=== PATIENT | female | born 2000 | race Two or more races ===

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

== ENCOUNTER 2018-11-27 12:29 | Emergency (ER) | payer MEDICAID ==
--- NOTE | 2018-11-27 12:57 | EDM.PDOC ---
ED HPI GENERAL MEDICAL PROBLEM - General Chief Complaint: CAN LINE EXAMINER Problem Stated Complaint: ABNORMAL BLEEDING Time Seen by Provider: 11/27/18 12:44 - History of Present Illness INITIAL COMMENTS - FREE TEXT/NARRATIVE: HISTORY AND PHYSICAL: History of present illness: Patient's 18-year-old female presents with concern of vaginal bleeding her period started 1 week prior normally last 3-4 days if his lasted slightly longer than that patient was concerned about the etiology. She is in no dizziness shortness of breath she does have an IUD she denies abdominal pain other than mild menstrual cramps. Review of systems: As per history of present illness and below otherwise all systems reviewed and negative. Past medical history: As per history of present illness and as reviewed below otherwise noncontributory. Surgical history: As per history of present illness and as reviewed below otherwise noncontributory. Social history: No reported history of drug or alcohol abuse. Family history: As per history of present illness and as reviewed below otherwise noncontributory. Physical exam: HEENT: Atraumatic, normocephalic, pupils reactive, negative for conjunctival pallor or scleral icterus, mucous membranes moist, throat clear, neck supple, nontender, trachea midline. Lungs: Clear to auscultation, breath sounds equal bilaterally, chest nontender. Heart: S1S2, regular, negative for clicks, rubs, or JVD. Abdomen: Soft, nondistended, nontender. Negative for masses or hepatosplenomegaly. Negative for costovertebral tenderness. Pelvis: Stable nontender. Genitourinary: Deferred. Rectal: Deferred. Extremities: Atraumatic, negative for cords or calf pain. Neurovascular unremarkable. Neuro: Awake, alert, oriented. Cranial nerves II through XII unremarkable. Cerebellum unremarkable. Motor and sensory unremarkable throughout. Exam nonfocal. Diagnostics: CBC hCG Therapeutics: None Impression: #1 menorrhagia Definitive disposition and diagnosis as appropriate pending reevaluation and review of above. - Related Data Allergies Allergy/AdvReac Type Severity Reaction Status Date / Time amoxicillin Allergy Hives Verified 07/05/18 18:58 Home Meds: Home Meds . [No Known Home Meds] 06/20/15 [History] Past Medical History - Past Health History Medical/Surgical History: Denies Medical/Surgical History HEENT History: Reports: None Cardiovascular History: Reports: None Respiratory History: Reports: None Gastrointestinal History: Reports: None Genitourinary History: Reports: None CAN LINE EXAMINER History: Reports: Other CAN LINE EXAMINER History: bleeding for 2 months Neurological History: Reports: None Psychiatric History: Reports: None - Infectious Disease History Infectious Disease History: Reports: Chicken Pox - Past Surgical History HEENT Surgical History: Reports: None Cardiovascular Surgical History: Reports: None Respiratory Surgical History: Reports: None Social & Family History - Family History Family Medical History: Noncontributory - Caffeine Use Caffeine Use: Reports: Coffee, Energy Drinks ED ROS GENERAL - Review of Systems Review Of Systems: ROS reveals no pertinent complaints other than HPI. ED EXAM, GENERAL - Physical Exam Exam: See Below (See dictation) Course - Orders/Labs/Meds Orders: Active Orders 24 hr Category Date Time Status CBC WITH AUTO DIFF [HEME] Stat Lab 11/27/18 12:48 Ordered HCG QUALITATIVE,SERUM [CHEM] Stat Lab 11/27/18 12:48 Ordered Departure - Departure Time of Disposition: 12:57 Disposition: Home, Self-Care 01 Condition: Good Clinical Impression: Menorrhagia - Discharge Information Referrals: Deanna Zeng HELP DESK COORDINATOR [Primary Care Provider] - Additional Instructions: The following information is given to patients seen in the emergency department who are being discharged to home. This information is to outline your options for follow-up care. We provide all patients seen in our emergency department with a follow-up referral. The need for follow-up, as well as the timing and circumstances, are variable depending upon the specifics of your emergency department visit. If you don't have a primary care physician on staff, we will provide you with a referral. We always advise you to contact your personal physician following an emergency department visit to inform them of the circumstance of the visit and for follow-up with them and/or the need for any referrals to a consulting specialist. The emergency department will also refer you to a specialist when appropriate. This referral assures that you have the opportunity for followup care with a specialist. All of these measure are taken in an effort to provide you with optimal care, which includes your followup. Under all circumstances we always encourage you to contact your private physician who remains a resource for coordinating your care. When calling for followup care, please make the office aware that this follow-up is from your recent emergency room visit. If for any reason you are refused follow-up, please contact the [facility] emergency department at and asked to speak to the emergency department charge nurse. Follow-up CAN LINE EXAMINER as scheduled and return as needed as discussed - My Orders Last 24 Hours: My Active Orders 11/27/18 12:48 CBC WITH AUTO DIFF [HEME] Stat HCG QUALITATIVE,SERUM [CHEM] Stat - Assessment/Plan Last 24 Hours: My Active Orders 11/27/18 12:48 CBC WITH AUTO DIFF [HEME] Stat HCG QUALITATIVE,SERUM [CHEM] Stat
[2018-11-27 13:02] VITALS: BP 108/80
== END 2018-11-27 14:38 | disposition home or self-care (01) ==
LOC: MW.ED 12:29
DX: N92.0 Excessive and frequent menstruation with regular cycle (principal); Z88.1 Allergy status to other antibiotic agents
CPT/HCPCS: 36415; 84703; 85025; 99282; 99284

== ENCOUNTER 2019-09-29 20:46 | Emergency (ER) | payer MEDICAID, OTHER ==
--- NOTE | 2019-09-29 21:41 | EDM.PDOC ---
ED HPI GENERAL MEDICAL PROBLEM - General Chief Complaint: General Stated Complaint: FLU Time Seen by Provider: 09/29/19 21:40 Source of Information: Reports: Patient History Limitations: Reports: No Limitations - History of Present Illness INITIAL COMMENTS - FREE TEXT/NARRATIVE: HISTORY AND PHYSICAL: History of present illness: Patient is a 19-year-old female who presents to the emergency room today with complaints of a dry nonproductive cough, chills and generally feeling unwell. Patient is concerned she may have influenza. 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 Patient denies any fever , headache, change in vision, syncope or near syncope. Denies any chest pain, back pain, shortness of breath or cough. Denies any GI or symptoms. Patient has been eating and drinking appropriately. Review of systems: As per history of present illness and below otherwise all systems reviewed and negative. Past medical history: As per history of present illness and as reviewed below otherwise noncontributory. Surgical history: As per history of present illness and as reviewed below otherwise noncontributory. Social history: See social history for further information Family history: As per history of present illness and as reviewed below otherwise noncontributory. Physical exam: General: Well-developed and well-nourished 19-year-old female. Alert and oriented. Nontoxic-appearing and in no acute distress. HEENT: Atraumatic, normocephalic, pupils equal and reactive bilaterally, negative for conjunctival pallor or scleral icterus, mucous membranes moist, TMs normal bilaterally, throat clear, neck supple, nontender, trachea midline. No drooling or trismus noted. No meningeal signs. No hot potato voice noted. Lungs: Clear to auscultation, breath sounds equal bilaterally, chest nontender. Dry nonproductive cough noted. Heart: S1S2, regular rate and rhythm without overt murmur Abdomen: Soft, nondistended, nontender. Negative for masses or hepatosplenomegaly. Negative for costovertebral tenderness. Skin: Intact, warm, dry. No lesions or rashes noted. Extremities: Atraumatic, moves all extremities per self without difficulty or deficits, negative for cords or calf pain. Neurovascular unremarkable. Neuro: Awake, alert, oriented. Cranial nerves II through XII unremarkable. Cerebellum unremarkable. Motor and sensory unremarkable throughout. Exam nonfocal. Notes: Supportive care measures were reviewed and discussed. Voices understanding and is agreeable to plan of care. Denies any further questions or concerns at this time. Diagnostics: Influenza Therapeutics: Phenergan w/ cod Prescription: Zpak Impression: Bronchitis Plan: 1. Standard contact precautions (covering mouth while coughing, avoid sharing drinking cups and eating utensils). Please make sure you're doing good handwashing as this is contagious. 2. Take medications as prescribed 3. Supportive care measures such as Tylenol and/or ibuprofen for pain and fever management.Encourage small frequent sips of fluids to prevent dehydration. 4. 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 Return to the ED as needed and as discussed. Definitive disposition and diagnosis as appropriate pending reevaluation and review of above. headache Pain Score (Numeric/FACES): 6 - Related Data Allergies Allergy/AdvReac Type Severity Reaction Status Date / Time amoxicillin Allergy Hives Verified 09/29/19 21:38 Home Meds: Home Meds . 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: Reports: Other DENTAL TECHNOLOGY ADVISOR History: bleeding for 2 months Neurological History: Reports: None Psychiatric History: Reports: None - Infectious Disease History Infectious Disease History: Reports: Chicken Pox - Past Surgical History HEENT Surgical History: Reports: None Cardiovascular Surgical History: Reports: None Respiratory Surgical History: Reports: None Social & Family History - Family History Family Medical History: Noncontributory - Caffeine Use Caffeine Use: Reports: None ED ROS GENERAL - Review of Systems Review Of Systems: Comprehensive ROS is negative, except as noted in HPI. ED EXAM, GENERAL - Physical Exam Exam: See Below (See dictation) Course - Vital Signs Last Recorded V/S: Last Vital Signs Temp 98.4 F 09/29/19 21:35 Pulse 106 H 09/29/19 21:35 Resp 18 09/29/19 21:35 BP 123/78 09/29/19 21:35 Pulse Ox 98 09/29/19 21:35 Departure - Departure Time of Disposition: 22:13 Disposition: Home, Self-Care 01 Clinical Impression: Bronchitis - Discharge Information Instructions: Upper Respiratory Infection, Adult, [id number] Referrals: Deanna Zeng SALESPERSON TERRAZZO TILES [Primary Care Provider] - Forms: ED Department Discharge Additional Instructions: The following information is given to patients seen in the emergency department who are being discharged to home. This information is to outline your options for follow-up care. We provide all patients seen in our emergency department with a follow-up referral. The need for follow-up, as well as the timing and circumstances, are variable depending upon the specifics of your emergency department visit. If you don't have a primary care physician on staff, we will provide you with a referral. We always advise you to contact your personal physician following an emergency department visit to inform them of the circumstance of the visit and for follow-up with them and/or the need for any referrals to a consulting specialist. The emergency department will also refer you to a specialist when appropriate. This referral assures that you have the opportunity for follow-up care with a specialist. All of these measure are taken in an effort to provide you with optimal care, which includes your follow-up. Under all circumstances we always encourage you to contact your private physician who remains a resource for coordinating your care. When calling for follow-up care, please make the office aware that this follow-up is from your recent emergency room visit. If for any reason you are refused follow-up, please contact the [facility] Emergency Department at and asked to speak to the emergency department charge nurse. [facility] [address] [place] [id number] [address] 1. Standard contact precautions (covering mouth while coughing, avoid sharing drinking cups and eating utensils). Please make sure you're doing good handwashing as this is contagious. 2. Take medications as prescribed 3. Supportive care measures such as Tylenol and/or ibuprofen for pain and fever management.Encourage small frequent sips of fluids to prevent dehydration. 4. 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 Return to the ED as needed and as discussed. Sepsis Event Note - Evaluation Sepsis Screening Result: No Definite Risk - Focused Exam Vital Signs: Vital Signs Temp Pulse Resp BP Pulse Ox 09/29/19 21:35 98.4 F 106 H 18 123/78 98 Date Exam was Performed: 09/29/19 Time Exam was Performed: 22:11
[2019-09-29 22:33] VITALS: BP 118/74; PULSE 111
== END 2019-09-29 22:30 | disposition home or self-care (01) ==
LOC: MW.ED 20:46
DX: J40 Bronchitis, not specified as acute or chronic (principal); Z88.1 Allergy status to other antibiotic agents
CPT/HCPCS: 87804; 99283

== ENCOUNTER 2020-09-06 17:14 | Emergency (ER) | payer OTHER ==
--- NOTE | 2020-09-06 17:38 | EDM.PDOC ---
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 The patient states that she had a normal 1 time menstrual cycle last week from the 17th to the 24. She then had no bleeding until approximately 3 days ago when she started bleeding again and starting yesterday became heavy she is using super plus tampons and has bleeding with some clots she is changing tampons every 2 hours. She reports fatigue but denies any chest pain or shortness of breath. She reports she is having very minimal lower abdominal cramping but no severe pain. She did first noticed the bleeding after sexual intercourse. She denies any severe pain or other unusual events during intercourse. She did have one episode of dysfunctional uterine bleeding in the past that time she was on hormonal control and it was soon after the of her daughter. She has had no irregular menses since moving to the copper IUD a couple years ago. No fevers no chills. - Related Data Allergies Allergy/AdvReac Type Severity Reaction Status Date / Time amoxicillin Allergy Hives Verified 09/06/20 17:29 cefdinir Allergy Nausea Verified 09/06/20 17:29 Sulfa (Sulfonamide Allergy Hives Verified 09/06/20 17:29 Antibiotics) Home Meds: Home Meds Benzonatate [Tessalon Perle] 1 cap PO ASDIRECTED 09/06/20 [History] Past Medical History - Past Health History Medical/Surgical History: Denies Medical/Surgical History HEENT History: Reports: None Cardiovascular History: Reports: None Respiratory History: Reports: None Gastrointestinal History: Reports: None Genitourinary History: Reports: None CAMP HEAD COUNSELOR History: 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: 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 CAMP HEAD COUNSELOR History: bleeding for 2 months Musculoskeletal History: Reports: None Neurological History: Reports: None Psychiatric History: Reports: None Endocrine/Metabolic History: Reports: None Insulin Pump Model and Copper Plate Lithographer: None Hematologic History: Reports: None Immunologic History: Reports: None Oncologic (Cancer) History: Reports: None Dermatologic History: Reports: None - Infectious Disease History Infectious Disease History: Reports: Chicken Pox - Past Surgical History HEENT Surgical History: Reports: None Cardiovascular Surgical History: Reports: None Respiratory Surgical History: Reports: None Social & Family History - Family History Family Medical History: No Pertinent Family History - Caffeine Use Caffeine Use: Reports: None ED ROS GENERAL - Review of Systems Review Of Systems: See Below Free Text/Narrative/Comment: General: No fever. Skin: No rash. Eyes: No vision problems. ENT: No sore throat. Neck: No neck stiffness. Respiratory: No shortness of breath. Cardiac: No chest pain. Gastrointestinal: No nausea, vomiting or abdominal pain. Urinary: No dysuria. Musculoskeletal: No myalgias/arthralgias. Neurologic: No headache. ED EXAM, GENERAL - Physical Exam Exam: See Below Free Text/Narrative:: General Appearance: No acute distress, appears comfortable Skin: No rash HEENT: Normocephalic/atraumatic, sclera anicteric, mucous membranes moist Neck: Normal range of motion Chest and Lungs: Normal work of breathing Cardiovascular: Intact distal perfusion Abdomen: Soft, non-tender Back: Normal Musculoskeletal: No edema or tenderness Neurologic: Awake, alert, no obvious deficits, moving all extremities Psychiatric: Appropriate, cooperative Course - Vital Signs Last Recorded V/S: Last Vital Signs Temp 97.0 F 09/06/20 17:31 Pulse 77 09/06/20 17:31 Resp 17 09/06/20 17:31 BP 132/97 H 09/06/20 17:31 Pulse Ox 98 09/06/20 17:31 - Orders/Labs/Meds Labs: Laboratory Tests 09/06/20 09/06/20 09/06/20 Range/Units 17:20 17:20 17:55 WBC 8.31 (4.0-11.0) K/uL RBC 4.60 (4.30-5.90) M/uL Hgb 14.1 (12.0-16.0) g/dL Hct 42.1 (36.0-46.0) % MCV 91.5 (80.0-98.0) fL MCH 30.7 (27.0-32.0) pg MCHC 33.5 (31.0-37.0) g/dL RDW Std Deviation 41.1 (28.0-62.0) fl RDW Coeff of Freedom 12 (11.0-15.0) % Plt Count 258 (150-400) K/uL MPV 10.40 (7.40-12.00) fL Neut % (Auto) 66.0 (48.0-80.0) % Lymph % (Auto) 26.8 (16.0-40.0) % [place] % (Auto) 6.6 (0.0-15.0) % Eos % (Auto) 0.5 (0.0-7.0) % Baso % (Auto) 0.1 (0.0-1.5) % Neut # (Auto) 5.5 (1.4-5.7) K/uL Lymph # (Auto) 2.2 (0.6-2.4) K/uL [place] # (Auto) 0.6 (0.0-0.8) K/uL Eos # (Auto) 0.0 (0.0-0.7) K/uL Baso # (Auto) 0.0 (0.0-0.1) K/uL Nucleated RBC % 0.0 /100WBC Nucleated RBCs # 0 K/uL Sodium (136-145) mmol/L Potassium (3.5-5.1) mmol/L Chloride (98-107) mmol/L Carbon Dioxide (21.0-32.0) mmol/L BUN (7.0-18.0) mg/dL Creatinine (0.6-1.0) mg/dL Est Cr Clr Drug Dosing Estimated GFR (MDRD) ml/min Glucose (74-106) mg/dL Calcium (8.5-10.1) mg/dL Total Bilirubin (0.2-1.0) mg/dL AST (15-37) IU/L ALT (14-63) IU/L Alkaline Phosphatase (46-116) U/L Total Protein (6.4-8.2) g/dL Albumin (3.4-5.0) g/dL Globulin (2.6-4.0) g/dL Albumin/Globulin Ratio (0.9-1.6) Urine Color YELLOW Urine Appearance CLEAR Urine pH 7.0 (5.0-8.0) Ur Specific [place] 1.015 (1.001-1.035) Urine Protein NEGATIVE (NEGATIVE) mg/dL Urine Glucose (UA) NEGATIVE (NEGATIVE) mg/dL Urine Ketones NEGATIVE (NEGATIVE) mg/dL Urine Occult Blood SMALL H (NEGATIVE) Urine Nitrite NEGATIVE (NEGATIVE) Urine Bilirubin NEGATIVE (NEGATIVE) Urine Urobilinogen 0.2 (<2.0) EU/dL Ur Leukocyte Esterase NEGATIVE (NEGATIVE) Urine RBC 0-2 (0-2/HPF) Urine WBC 0-1 (0-5/HPF) Ur Epithelial Cells RARE (NONE-FEW) Urine Bacteria FEW (NEGATIVE) Urine HCG, Qual NEGATIVE (NEGATIVE) 09/06/20 Range/Units 17:55 WBC (4.0-11.0) K/uL RBC (4.30-5.90) M/uL Hgb (12.0-16.0) g/dL Hct (36.0-46.0) % MCV (80.0-98.0) fL MCH (27.0-32.0) pg MCHC (31.0-37.0) g/dL RDW Std Deviation (28.0-62.0) fl RDW Coeff of [place] (11.0-15.0) % Plt Count (150-400) K/uL MPV (7.40-12.00) fL Neut % (Auto) (48.0-80.0) % Lymph % (Auto) (16.0-40.0) % [place] % (Auto) (0.0-15.0) % Eos % (Auto) (0.0-7.0) % Baso % (Auto) (0.0-1.5) % Neut # (Auto) (1.4-5.7) K/uL Lymph # (Auto) (0.6-2.4) K/uL [place] # (Auto) (0.0-0.8) K/uL Eos # (Auto) (0.0-0.7) K/uL Baso # (Auto) (0.0-0.1) K/uL Nucleated RBC % /100WBC Nucleated RBCs # K/uL Sodium 134 L (136-145) mmol/L Potassium 3.8 (3.5-5.1) mmol/L Chloride 101 (98-107) mmol/L Carbon Dioxide 25.6 (21.0-32.0) mmol/L BUN 9 (7.0-18.0) mg/dL Creatinine 0.7 (0.6-1.0) mg/dL Est Cr Clr Drug Dosing TNP Estimated GFR (MDRD) > 60.0 ml/min Glucose 93 (74-106) mg/dL Calcium 9.9 (8.5-10.1) mg/dL Total Bilirubin 0.5 (0.2-1.0) mg/dL AST 16 (15-37) IU/L ALT 19 (14-63) IU/L Alkaline Phosphatase 78 (46-116) U/L Total Protein 8.2 (6.4-8.2) g/dL Albumin 4.5 (3.4-5.0) g/dL Globulin 3.7 (2.6-4.0) g/dL Albumin/Globulin Ratio 1.2 (0.9-1.6) Urine Color Urine Appearance Urine pH (5.0-8.0) Ur Specific [place] (1.001-1.035) Urine Protein (NEGATIVE) mg/dL Urine Glucose (UA) (NEGATIVE) mg/dL Urine Ketones (NEGATIVE) mg/dL Urine Occult Blood (NEGATIVE) Urine Nitrite (NEGATIVE) Urine Bilirubin (NEGATIVE) Urine Urobilinogen (<2.0) EU/dL Ur Leukocyte Esterase (NEGATIVE) Urine RBC (0-2/HPF) Urine WBC (0-5/HPF) Ur Epithelial Cells (NONE-FEW) Urine Bacteria (NEGATIVE) Urine HCG, Qual (NEGATIVE) Departure - Departure Time of Disposition: 18:43 Disposition: Home, Self-Care 01 Condition: Good Clinical Impression: Dysfunctional uterine bleeding - Discharge Information *PRESCRIPTION DRUG MONITORING PROGRAM REVIEWED*: Not Applicable *COPY OF PRESCRIPTION DRUG MONITORING REPORT IN PATIENT ANDREI: Not Applicable Instructions: Dysfunctional Uterine Bleeding Referrals: Deanna Zeng NP [Primary Care Provider] - Forms: ED Department Discharge Additional Instructions: If you are soaking more than 2 tampons in 1 hour for 2 hours in a row or more or if you develop severe lightheadedness chest pain trouble breathing severe abdominal pain or any other symptoms that concern you please turn to the ER. Otherwise please follow-up with your primary care doctor within the next several days. You can take ibuprofen to help with cramping and may also help some with the bleeding. The following information is given to patients seen in the emergency department who are being discharged to home. This information is to outline your options for follow-up care. We provide all patients seen in our emergency department with a follow-up referral. The need for follow-up, as well as the timing and circumstances, are variable depending upon the specifics of your emergency department visit. If you don't have a primary care physician on staff, we will provide you with a referral. We always advise you to contact your personal physician following an emergency department visit to inform them of the circumstance of the visit and for follow-up with them and/or the need for any referrals to a consulting specialist. The emergency department will also refer you to a specialist when appropriate. This referral assures that you have the opportunity for follow-up care with a specialist. All of these measure are taken in an effort to provide you with optimal care, which includes your follow-up. Under all circumstances we always encourage you to contact your private physician who remains a resource for coordinating your care. When calling for follow-up care, please make the office aware that this follow-up is from your recent emergency room visit. If for any reason you are refused follow-up, please contact the [facility] Emergency Department at and asked to speak to the emergency department charge nurse. Sepsis Event Note (ED) - Focused Exam Vital Signs: Vital Signs Temp Pulse Resp BP Pulse Ox 09/06/20 17:31 97.0 F 77 17 132/97 H 98 - Assessment/Plan Assessment:: 20-year-old female presenting with signs symptoms most consistent with dysfunctional uterine bleeding versus threatened/incomplete/missed AB. No clear risk factors for PID no severe pain that would suggest ovarian torsion. CBC CMP ordered urinalysis and uHCG as well. Pelvic exam pending. 1830: At patient's request pelvic exam was conducted by female provider. See their separate note for documentation. In brief the patient has some mild bleeding from the cervix, strings were visible, no CMT or other tenderness, no signs of traumatic injury, no large clots, active hemorrhage or repooling. Labs are good with normal Hgb etc. Given this degree of bleeding and normal labs and VS would not start OCP burst at this time. 1845: On reassessment patient is feeling reassured and comfortable going home. We discussed return precautions in detail she will follow-up with her primary care provider who provides all of her gynecologic care.
[2020-09-06 18:24] LABS: BLOOD UREA NITROGEN,BUN 9 mg/dL (7.0-18.0); CARBON DIOXIDE,CO2 25.6 mmol/L (21.0-32.0); CHLORIDE,CL 101 mmol/L (98-107); GLUCOSE RANDOM 93 mg/dL (74-106); POTASSIUM,K 3.8 mmol/L (3.5-5.1); SODIUM,NA 134 mmol/L (136-145)
--- NOTE | 2020-09-06 18:33 | PCM.SN.2 ---
- Free Text/Narrative Note: I personally performed patients pelvic exam as she requested for a female provider. Supervisor Color Paste Mixing at bedside Pancho Hillman. External genitalia grossly unremarkable. There is a mild-moderate amount of darker red blood without clots in the vaginal vault which was cleared away using 2 long absorbant qtipds. IUD stings noted to be in place out of the cervical os. Small trickle of bleeding noted from the cervical os. No lacerations or other bleeding noted in the vaginal vault or on the cervix. Uterus is non tender and 6 weeks in size. Negative cervical motion tenderness. Negative chandelier sign.
[2020-09-06] MEDS: Ketorolac 60 MG/2 ML SDV IM ONE (18:56)
[2020-09-06 19:11] VITALS: BP 122/65; PULSE 74
== END 2020-09-06 18:58 | disposition home or self-care (01) ==
LOC: MW.ED 17:14
DX: N93.8 Other specified abnormal uterine and vaginal bleeding (principal); Z88.1 Allergy status to other antibiotic agents; Z88.0 Allergy status to penicillin; Z88.2 Allergy status to sulfonamides
CPT/HCPCS: 36415; 80053; 81001; 81025; 85025; 99283; 99284

== ENCOUNTER 2022-07-29 16:07 | Emergency (ER) | payer MEDICAID, OTHER ==
[2022-07-29 17:54] LABS: CARBON DIOXIDE,CO2 27.5 mmol/L (21.0-32.0); POTASSIUM,K 3.8 mmol/L (3.5-5.1)
[2022-07-29 21:20] VITALS: BP 126/74; PULSE 74
== END 2022-07-29 21:17 | disposition home or self-care (01) ==
LOC: MW.ED 16:07
DX: O20.0 Threatened abortion (principal); R10.2 Pelvic and perineal pain; Z88.1 Allergy status to other antibiotic agents; Z88.2 Allergy status to sulfonamides
CPT/HCPCS: 36415; 76817; 76817-26; 80053; 81001; 84702; 84703; 85025; 86900; 86901; 99284

== ENCOUNTER 2024-06-09 00:45 | Inpatient (IN) | payer MEDICAID ==
[2024-06-09] MEDS ORDERED: Carboprost Tromethamine 250 MCG/1 mL Vial IM PRN (00:56)
[2024-06-09] MEDS ORDERED: Misoprostol 200 MCG Tab PO PRN (00:56)
[2024-06-09] MEDS ORDERED: Sodium Chloride 0.9% 2.5 ML Syringe FLUSH PRN (00:56)
[2024-06-09] MEDS ORDERED: Tranexamic Acid IN NACL,ISO-OS 1,000 MG in Premix Bag 1 BAG IV PRN (00:56)
[2024-06-09] MEDS ORDERED: Lidocaine 1% 50 ML MDV INJECT PRN (00:56)
[2024-06-09] MEDS ORDERED: Sodium Chloride 0.9% 20 ML SDV IV PRN (00:56)
[2024-06-09] MEDS ORDERED: Water For Irrigation,Sterile 1,000 ML Container IRR PRN (00:56)
[2024-06-09] MEDS ORDERED: Ondansetron 4 MG/2 ML SDV IVPUSH PRN (00:56)
[2024-06-09] MEDS ORDERED: Sodium Chloride 0.9% 10 ML Syringe FLUSH PRN (00:56)
[2024-06-09] MEDS ORDERED: Terbutaline 1 MG/ML SDV SUBCUT PRN (01:00)
[2024-06-09] MEDS ORDERED: Oxytocin/0.9 % Sodium Chloride 30 UNIT/500 ML BAG IV SCH ×2 (01:00)
[2024-06-09] MEDS ORDERED: Ampicillin 2 GM in Sodium Chloride 0.9% 100 ML IV ONE (01:00)
[2024-06-09] MEDS: Misoprostol 25 MCG (1/4 of 100 MCG) Tab PO PRN (01:50)
[2024-06-09] MEDS: Misoprostol 25 MCG (1/4 of 100 MCG) Tab VAG PRN (01:50)
[2024-06-09] MEDS: Lactated Ringers 1,000 ML IV SCH (02:04)
[2024-06-09] MEDS: Clindamycin Phosphate in D5W 900 MG in Premix Bag 1 BAG IV SCH (02:05)
[2024-06-09 02:15] LABS: HEMATOCRIT 36.7 % (37.0-47.0); HEMOGLOBIN 12.9 g/dL (12.0-16.0); MEAN CORPUSCULAR HEMOGLOBIN 30.5 pg (28.0-32.0); MEAN CORPUSCULAR HGB CONC 35.1 g/dL (32.0-36.0); MEAN CORPUSCULAR VOLUME 86.8 fL (83.0-99.0); MEAN PLATELET VOLUME 11.2 fL (9.4-12.3); PLATELET COUNT,PLT 193 K/uL (150-400); RED BLOOD CELL COUNT 4.23 M/uL (4.10-5.30); WHITE BLOOD CELL COUNT,WBC 9.17 K/uL (3.9-11.3)
[2024-06-09] MEDS ORDERED: Ampicillin 1 GM in Sodium Chloride 0.9% 50 ML IV SCH (05:00)
[2024-06-09] MEDS: Butorphanol 2 MG/ML SDV IVPUSH PRN (05:52)
[2024-06-09] MEDS: Methylergonovine 0.2 MG/1 ML Amp IM PRN (06:45)
[2024-06-09] MEDS ORDERED: Ibuprofen 800 MG Tab PO PRN (08:29)
[2024-06-09] MEDS ORDERED: Acetaminophen 500 MG Tab PO PRN (08:29)
[2024-06-09] MEDS ORDERED: Docusate Sodium 100 MG Cap PO PRN (08:29)
[2024-06-09] MEDS: Benzocaine/Menthol 20%-0.5% Spray 78 GM Cannister TOP PRN (09:04)
[2024-06-09] MEDS: Witch Hazel Medicated Pads 40/Jar TOP PRN (09:04)
[2024-06-09] MEDS: Lanolin 100% Cream 7 GM Tube TOP PRN (09:04)
[2024-06-10 06:11] LABS: HEMATOCRIT 34.6 % (37.0-47.0); HEMOGLOBIN 11.8 g/dL (12.0-16.0)
[2024-06-11 07:34] VITALS: BP 133/82; PULSE 77
== END 2024-06-11 10:50 | disposition home or self-care (01) | DRG 807 ==
LOC: MW.OBCHECK 00:45 → MW.OB 00:46 → OBSVTOIN 08:29 → MW.OB 08:29
PROVIDERS: ADMIT Obstetrics & Gynecology; ATTEND Obstetrics & Gynecology Obstetrics
PROC: 10E0XZZ Delivery of Products of Conception, External Approach (ICD-10-PCS; principal; 2024-06-09)
PROC: 3E033VJ Introduction of Other Hormone into Peripheral Vein, Percutaneous Approach (ICD-10-PCS; 2024-06-09)
DX: O99.824 Streptococcus B carrier state complicating childbirth (principal); Z37.0 Single live birth; Z3A.39 39 weeks gestation of pregnancy
CPT/HCPCS: 36415; 59025; 59409; 85014; 85018; 85027; 86592; 86850; 86900; 86901; A9270-GY; J0595; J0736; J2210; J7120